=== PATIENT | male | born 1940 | race Caucasian/White ===

== ENCOUNTER 2021-09-30 03:46 | Inpatient (IN) | payer MEDICARE, SELFPAY ==
[2021-09-30] VITALS (8 sets, daily range): BP systolic 101–126; BP diastolic 64–82; PULSE 62–88; RESP 16–18; TEMP 36.7–37; O2SAT 94–100; BMI 25.7
--- NOTE | ~2021-09-30 | CT_ITS ---
EXAMINATION: CT abdomen pelvis wo con DATE: 09/30/2021 04:21 INDICATION: Abdominal pain. Bloating. Vomiting. TECHNIQUE: Computed tomography (CT) of the abdomen and pelvis was performed without intravenous contr ast. Automated exposure control and iterative reconstruction technique were employed. The dose-length product was 1040.05 mGy-cm. COMPARISON: CT abdomen and pelvis 06/17/2016 FINDINGS: The visualized portions of the lung bases demonstrate chronic interstitial lung disease and mild atelectasis. No pleural effusion. The heart size is normal. There are coronary artery calcifica tions. No pericardial effusion. There is a small sliding hiatal hernia. The liver and spleen are norm al. There are gallstones in the gallbladder, which is normal in size. The pancreas, adrenal glands, a nd left kidney are normal. There is 11 mm cyst in right kidney. There is no urolithiasis. There is a 5.0 cm fusiform aneurysm of infrarenal aorta. There are changes of aortobifem bypass grafting. There are moderate-sized bilateral hydroceles. There is diverticulosis of the colon without evidence of div erticulitis. There is liquid stool in the colon suggestive of diarrhea. The appendix is not visualize d. The ascending colon is distended. There are dilated loops of fluid-filled small bowel. There are n o pathologically enlarged lymph nodes. There is no free intraperitoneal fluid. There is an umbilical hernia containing fat. There is moderate lumbar spondylosis. IMPRESSION: 1. Dilated small bowel and proximal colon, consistent with adynamic ileus. 2. 5.0 cm fusiform aneurysm of infrarenal aorta, increased from 4.5 cm on 06/17/16. Aortobifem bypass g raft present. Surgical consultation is recommended. Reviewed, dictated and finalized at location A. IMPRESSION: 1. Dilated small bowel and proximal colon, consistent with adynamic ileus. 2. 5.0 cm fusiform aneurysm of infrarenal aorta, increased from 4.5 cm on 7. Aortobifem bypass graft present. Surgical consultation is recommended.
--- NOTE | 2021-09-30 03:54 | ECG_ITS ---
Measurements Intervals [place] Rate: 87 P: 43 VA: 136 QRS: -26 QRSD: 105 T: 61 QT: 372 QTc: 449 Interpretive Statements SINUS RHYTHM NONSPECIFIC ST ABNORMALITY INFERIOR MYOCARDIAL INFARCTION , OF INDETERMINATE AGE ABNORMAL ECG NO PREVIOUS ECG AVAILABLE FOR COMPARISON Electronically Signed On 09-30-2021 14:31:37 CDT by Tiago Garcia M.D.
--- NOTE | 2021-09-30 03:57 | ED.ABDPAIN ---
HPI - Abdominal Pain General Chief Complaint: Abdominal Pain Stated Complaint: abd pain History of Present Illness HPI narrative: 81-year-old male presents emergency room by ambulance secondary to abdominal pain. States it started about 4 hours ago. States it feels like he is diffusely bloated. He states I feel like I can have a bowel movement and throw up I do feel better . He denies any chest pain or shortness of breath. He has had abdominal aortic aneurysm in the past. States he had a small bowel movement earlier today. Going to his he had a pretty good dinner tonight. No pain into his legs. Related Data Allergies Allergy/AdvReac Type Severity Reaction Status Date / Time No Known Allergies Allergy Verified 09/30/21 03:56 Review of Systems Review of Systems: CONSTITUTIONAL: Denies fever, chills, or sweats. EYES: Denies visual changes, redness, or discharge. ENT: Denies rhinorrhea, congestion, sore throat, or otalgia. CARDIOVASCULAR: Denies chest pain, palpitations, or edema. RESPIRATORY: Denies cough or dyspnea. GASTROINTESTINAL: Abdominal bloating with associated diffuse abdominal pain in the mid and lower portion. GENITOURINARY: Denies dysuria or hematuria. SKIN: Denies rash or itching. MUSCULOSKELETAL: Denies back pain, joint pain, or myalgia. NEUROLOGIC: Denies headache, numbness, or weakness. PSYCHIATRIC: Denies anxiety or depression. [facility] Past Medical History Medical History (Updated 09/30/21 @ 03:58 by Nirav Gary DO) Abdominal aortic aneurysm Coronary artery disease Family History Family History (Updated 06/24/16 @ 15:53 by DOCTOR UNKNOWN) Other Family history of arthritis Family history of cardiovascular disease Family history of osteoarthritis Hypertension Social History Social History Smoking status: Never smoker Alcohol intake: current Exam Narrative: APPEARANCE: Well appearing, no pain or distress, well-nourished. Head normocephalic and atraumatic. EYES: PERRLA/EOMI, conjunctivae very clear. NOSE: Normal with no drainage EARS:TMS clear Dillon Gandhi, with good light reflex. THROAT: Pharynx clear, no exudate. NECK: Supple. No adenopathy, no masses. RESPIRATORY: Airway patent, respirations nonlabored. Clear to auscultation bilaterally, no rales, rhonchi, wheezing. CARDIOVASCULAR: Regular rate and rhythm without murmurs, rubs, or gallops. ABDOMINAL: Abdomen is distended with hyperactive bowel sounds. Some mild diffuse lower abdominal pain. No rebound or guarding. No masses. Musculoskeletal: Moves all extremities. Strength/ROM intact, No edema, No calf tenderness. Good distal pulses. NEURO: Alert. Cranial nerves II through XII intact. Normal gait. Good coordination. Nonfocal examination. SKIN:: Warm, dry. Normal Color PSYCHIATRIC: Normal affect/mood, normal interaction Course Vital Signs Vital signs: Vital Signs Temperature 98.0 F 09/30/21 03:42 Pulse Rate 87 09/30/21 03:42 Respiratory Rate 18 09/30/21 03:42 Blood Pressure 126/73 09/30/21 03:42 Pulse Oximetry 96 09/30/21 03:42 Oxygen Delivery Room Air 09/30/21 03:42 Temperature 98.0 F 09/30/21 03:42 Pulse Rate 88 09/30/21 05:21 Respiratory Rate 18 09/30/21 05:21 Blood Pressure 126/82 09/30/21 05:21 Pulse Oximetry 100 09/30/21 05:21 Oxygen Delivery Room Air 09/30/21 03:42 MDM - Abdominal Pain MDM Narrative Medical decision making narrative: Patient came in with his abdomen markedly distended with a lots of tenderness associated with this. Patient's had a couple episodes of emesis while in the emergency department. CT scans consistent with small bowel obstruction. This was explained to the patient and the family is at bedside. Will be admitted to the hospital at this time. Prehospital EKG was being read out as possible STEMI. Repeat EKG performed here shows some abnormalities in the inferior leads but there is no ST segment elevation. Patient's clinical pres
--- NOTE | 2021-09-30 04:01 | PC.NURSE ---
Pt to CT via stretcher at this time.
--- NOTE | 2021-09-30 04:21 | PC.NURSE ---
Pt taken to restroom via wheelchair. Pt able to ambulate to chair with steady gait.
--- NOTE | 2021-09-30 04:59 | PC.NURSE ---
This RN attempted to start IV access x2, no success. EDP notified for route change of medication
[2021-09-30] MEDS: ONDANSETRON HCL ODT 4 MG TABLET PO (05:06)
--- NOTE | 2021-09-30 05:07 | PC.NURSE ---
Pt taken to restroom. Pt reports several episodes of diarrhea since at ED.
[2021-09-30 05:18] LABS: Basophils Absolute Auto 0.1 K/mm3 (0.0-0.1); Basophils Percent Auto 0.4 % (0.2-1.2); Eosinophils Percent Auto 0.2 % (0-4.4); Hematocrit 52.3 % (42.0-52.0); Hemoglobin 16.8 g/dL (14.0-18.0); Immature Granulocyte Absolute 0.09 K/mm3 (0.00-0.031); Immature Granulocyte Percent A 0.5 % (0-0.5); Lymphocytes Percent Auto 2.4 % (18.3-44.2); Mean Corpuscular HGB Conc 32.1 g/dl (32-36); Mean Corpuscular Hemoglobin 29.4 pg (26-34); Mean Corpuscular Volume 91.4 fl (80-100); Mean Platelet Volume 11.2 fl (7.4-10.4); Monocytes Percent Auto 5.7 % (2.6-8.5); Neutrophils Absolute Auto 15.3 K/mm3 (1.3-6.7); Neutrophils Percent Auto 90.8 % (45.5-73.1); Platelet Count Result 273 k/mm3 (150-375); Red Blood Count 5.72 M/mm3 (4.6-6.20); Red Cell Distribution Width 13.7 % (11.5-14.5); White Blood Count 16.9 K/mm3 (4.5-10.0)
--- NOTE | 2021-09-30 05:41 | PC.NURSE ---
IV attempt x 1 by this RN. Unsuccessful.
[2021-09-30 06:16] LABS: Alanine Aminotransferase 15 U/L (6-50); Albumin Level 4.6 g/dL (3.5-5.1); Alkaline Phosphatase 86 U/L (38-126); Anion Gap 8 mmol/L (8-16); Aspartate Amino Transferase 21 U/L (17-59); Bilirubin,Total 0.6 mg/dL (0.2-1.3); Blood Urea Nitrogen 25 mg/dL (9-20); Calcium 8.4 mg/dL (8.4-10.2); Carbon Dioxide 24 mmol/L (22-30); Chloride 105 mmol/L (98-107); Estimated CRCL calculation 38 ml/min; Estimated Glomerular Filt Rate 49; Glucose 139 mg/dL (65-110); Potassium 4.5 mmol/L (3.4-5.0); Sodium 137 mmol/L (137-145)
[2021-09-30 06:21] LABS: Troponin I < 0.012 ng/mL (0.000-0.034)
--- NOTE | 2021-09-30 06:27 | ADMGEN ---
This patient, Bello Mccain, was admitted to 3 [facility] Surg Room 321-01. Patient/family oriented to hospital policies and general routines including ID bracelet, bed and alarms, visiting hours, pain management, procedures, bathroom and other care routines, personal items, smoking policy, room service/diet, and visiting hours. Information on how to activate the Rapid Response Team has been discussed. Patient/Family are encouraged to report perceived risks to care and to ask questions if they do not understand what they are told or what they should do.
--- NOTE | 2021-09-30 11:39 | PM.IMHP ---
H&P: HPI History of Present Illness Date/Time: 09/30/21 11:39 Chief Complaint: Abdominal pain nausea 81-year-old male presents emergency room by ambulance secondary to abdominal pain.? States it started about 4 hours ago.? States it feels like he is diffusely bloated.? He states I feel like I can have a bowel movement and throw up I do feel better .? He denies any chest pain or shortness of breath.? He has had abdominal aortic aneurysm in the past.? States he had a small bowel movement earlier today.? Going to his he had a pretty good dinner tonight.? No pain into his legs. I did not see the patient with following morning after he was admitted. According the patient had about 8-10 loose stools Overnite. He is feeling 100% better no abdominal pain currently. Reports she wants to drink something and probably eats something as well. Surgical Consul has not been entered yet. Review of Systems Review of Systems: 10 point ROS negative except as stated in HPI / Subjective PMFSH Past Medical History Medical History (Updated 09/30/21 @ 11:41 by Jesus Lin MD) Abdominal aortic aneurysm Coronary artery disease Family History Family History (Updated 06/24/16 @ 15:53 by DOCTOR UNKNOWN) Other Family history of arthritis Family history of cardiovascular disease Family history of osteoarthritis Hypertension Social History Social History Smoking status: Never smoker Alcohol intake: current Substance use: never Spiritual care concerns: No Meds Home Medications and Allergies Home Medications Medication Instructions Recorded Confirmed Type aspirin 81 mg tablet 81 mg PO DAILY 09/30/21 09/30/21 History atenolol 25 mg tablet 25 tablet PO DAILY 09/30/21 09/30/21 History lisinopril 20 mg tablet 20 tablet PO DAILY 09/30/21 09/30/21 History Allergies Allergy/AdvReac Type Severity Reaction Status Date / Time No Known Allergies Allergy Verified 09/30/21 06:59 Vital Signs Vital Signs - 24 hr 09/30/21 03:42 09/30/21 05:21 09/30/21 06:01 Temperature 98.0 F Pulse Rate 87 88 83 Respiratory Rate 18 18 17 Blood Pressure 126/73 126/82 Pulse Oximetry 96 100 95 Oxygen Delivery Room Air 09/30/21 06:46 Temperature 98.6 F Pulse Rate 83 Respiratory Rate 18 Blood Pressure 105/64 Pulse Oximetry 94 Oxygen Delivery Exam Narrative: General: alert and oriented Psych: appropriate mood nad affect Eyes: PERRLA Neck: Trachea midline, no new lesions Skin: no changes Lungs: CTA Cardiac: Normal S1,S2, no MGR ABD: soft, nd, nt, nbs Ext: no new lesions, no cce Vasc: Pulses intact H&P: Results Labs Labs: Short CBC 09/30/21 Range/Units 05:00 WBC 16.9 H (4.5-10.0) K/mm3 Hgb 16.8 (14.0-18.0) g/dL Hct 52.3 H (42.0-52.0) % Plt Count 273 (150-375) k/mm3 BMP 09/30/21 05:49 Sodium 137 Potassium 4.5 Chloride 105 Carbon Dioxide 24 BUN 25 H Creatinine 1.40 H Glucose 139 H Calcium 8.4 Cardiac Enzymes 09/30/21 Range/Units 05:49 Troponin I < 0.012 (0.000-0.034) ng/mL Liver Function 09/30/21 Range/Units 05:49 Total Bilirubin 0.6 (0.2-1.3) mg/dL AST 21 (17-59) U/L ALT 15 (6-50) U/L Alkaline Phosphatase 86 (38-126) U/L Albumin 4.6 (3.5-5.1) g/dL Assessment and Plan Assessment and plan (1) Ileus: Code(s): K56.7 - Ileus, unspecified Status: Acute Assessment and Plan: Likely resolved. Patient had episode of emesis last night Choi is a being admitted to the ER. He also had several bowel movements Overnite. Noted loose stool. No abdominal cramping no abdominal pain. He wants to eat. IV fluids will be continued until surgery can see and may advance diet if okay with surgery (2) Hypertension: Code(s): I10 - Essential (primary) hypertension Status: Acute Assessment and Plan: Continue home meds (3) Abdominal aortic aneurysm: Code(s): I71.4 - Abdo
[2021-09-30] MEDS: LACTATED RINGERS 1,000 ML 75 ML IV CONT (12:02)
[2021-09-30 12:27] LABS: Appearance Urine Slightly Cloudy (Clear); Bilirubin Urine Negative (Negative); Blood Urine Trace-lysed (Negative); Color Urine Yellow (Yellow); Glucose Urine UA Negative (Negative); Ketones Urine Negative (Negative); Leukocyte Esterase Ur Negative LEU/UL (Negative); Nitrate Urine Negative (Negative); Protein Urine Trace mg/dL (Negative); Urobilinogen Urine 0.2 mg/dL (<2.0); pH Urine 5.5 (5.0-9.0)
[2021-09-30 12:35] LABS: Mucus Urine Rare /lpf; Squamous Epithelial Cell Urine Rare /hpf (Few); WBC Urine 0-3 /hpf
[2021-09-30 12:44] LABS: Add Urine Microscopic? YES
--- NOTE | 2021-09-30 15:45 | PM.CNGS ---
Assessment and Plan Assessment and plan (1) Abnormal CT of the abdomen: Code(s): R93.5 - Abnormal findings on diagnostic imaging of other abdominal regions, including retroperitoneum Status: Acute Assessment and Plan: CT scan reviewed and discussed with the patient in detail. The initial teleradiology report suggested possible early or partial small bowel obstruction, no definitive transition point. CT read by the Radiologist this morning suggests dilation of the small bowel and proximal colon, suggesting an ileus. The patient's symptoms had a sudden onset after quickly eating a large meal and have since resolved after having multiple bowel movements. After evaluating the patient, it seems that this is more likely related to a food bolus. He has now had multiple bowel movements overnight and one this morning. He has no signs of an obstruction. His abdominal exam is benign. There is no indication for surgical intervention at this time. Will start clear liquids and may advance his diet as tolerated. Thank you for allowing us to see the patient in consultation. (2) Hypertension: Code(s): I10 - Essential (primary) hypertension Status: Chronic (3) Abdominal aortic aneurysm: Code(s): I71.4 - Abdominal aortic aneurysm, without rupture Status: Chronic Assessment and Plan: 5.0 cm infrarenal aortic aneurysm noted on CT increased in size from 2017. He has called his vascular surgeon, Dr. Sherwood, and has a follow-up scheduled in the next few weeks. Plan I have discussed the patient's case and plan of care with Dr. Walker. History of Present Illness Consult details Consult date: 09/30/21 Reason for consult: other (Ileus) Requesting physician: Jesus Lin MD Narrative: This is an 81-year-old male with a history of abdominal aortic aneurysm and hypertension who presented to the ER with complaints of abdominal pain. He reports eating a large dinner yesterday evening including 4 servings of instant mashed potatoes, a can of creamy corn, and an 8 ounce steak. He reports eating this very quickly and feeling extremely full. About 1 hour after eating, he continued to feel full, but also began having generalized cramping abdominal pain. He denies ever having this pain before in the past. He also reports significant bloating, but no nausea or vomiting at home. He tried to go to bed around midnight, but was unable to sleep due to the abdominal pain. He tried cold and warm compresses with no relief. He then woke his significant other and they called EMS. In the ER, his CT scan was read by the teleradiologist and suggested a partial versus early small bowel obstruction with no transition point. The patient reports that en route to the CT scan, his abdominal pain completely resolved. While in Radiology, he had 3 episodes of emesis and estimated 7 bowel movements. The patient was admitted to the Hospitalist and made NPO. CT read by the Radiologist this morning suggests an adynamic ileus. Through the night, he reports having another 2-3 bowel movements and one this morning. He has not had abdominal pain since being in the ER. He denies any nausea or vomiting since being admitted to the floor. Our service was consulted for an ileus. The patient is now seen. He is eager to eat and states he feels back to his baseline. No complaints at the time of my exam. He denies every having a bowel obstruction in the past. He had a colonoscopy about 1-2 years ago, which was reportedly normal. Review of Systems Review of Systems: All systems reviewed & are unremarkable except as noted in HPI and below Constitutional: Constitutional: Reports as per HPI, Denies chills, Denies fatigue and Denies fever(s) Eyes: Eyes: Reports no additional eye complaints ENT: Reports system reviewed and no additional complaints, except as documented and Reports Normal hearing present Cardiovascular: Cardiovascular: Reports no additional cardiovascular
[2021-10-01] MEDS: LACTATED RINGERS 1,000 ML 75 ML IV CONT (01:31)
[2021-10-01 05:45] LABS: Hematocrit 39.4 % (42.0-52.0); Hemoglobin 12.5 g/dL (14.0-18.0); Mean Corpuscular HGB Conc 31.7 g/dl (32-36); Mean Corpuscular Hemoglobin 28.9 pg (26-34); Mean Corpuscular Volume 91.2 fl (80-100); Mean Platelet Volume 10.6 fl (7.4-10.4); Platelet Count Result 146 k/mm3 (150-375); Red Blood Count 4.32 M/mm3 (4.6-6.20); Red Cell Distribution Width 13.7 % (11.5-14.5); White Blood Count 5.7 K/mm3 (4.5-10.0)
[2021-10-01 06:00] VITALS: BP 140/71; PULSE 63; RESP 16; TEMP 36.7; O2SAT 93
[2021-10-01 06:20] LABS: Anion Gap 4 mmol/L (8-16); Blood Urea Nitrogen 23 mg/dL (9-20); Calcium 6.9 mg/dL (8.4-10.2); Carbon Dioxide 23 mmol/L (22-30); Chloride 107 mmol/L (98-107); Estimated CRCL calculation 44 ml/min; Estimated Glomerular Filt Rate 58; Glucose 92 mg/dL (65-110); Potassium 4.1 mmol/L (3.4-5.0); Sodium 134 mmol/L (137-145)
[2021-10-01 08:00] VITALS: O2SAT 95
[2021-10-01 09:01] VITALS: PULSE 67
[2021-10-01] MEDS: lisinopriL 20 MG TABLET PO (09:01)
[2021-10-01] MEDS: atenoloL 25 MG TABLET PO (09:01)
--- NOTE | 2021-10-01 11:12 | PM.DS ---
DS: Admitting Diagnosis Discharge Date October 01, 2021 Admitting Diagnosis Possible small-bowel obstruction. Nausea vomiting DS: Discharge Diagnosis Discharge Diagnosis (1) Ileus: Code(s): K56.7 - Ileus, unspecified Status: Acute Assessment and Plan: Likely resolved. Patient has had numerous bowel movements. Passing gas this morning as well. Appreciate surgical Consul. (2) Hypertension: Code(s): I10 - Essential (primary) hypertension Status: Chronic Assessment and Plan: Continue home meds (3) Abdominal aortic aneurysm: Code(s): I71.4 - Abdominal aortic aneurysm, without rupture Status: Chronic Assessment and Plan: Slightly increased from prior study. Patient reports he follows with his vascular surgeon regularly. He has an appointment next week or 2. I do not think there is anything urgent needed to be done. DS: Summary Hospital Course Hospital Course: See discharge planning diagnoses Time Spent with Patient Time attestation: Total time spent providing and/or coordinating discharge services: Exam Narrative: General: alert and oriented Psych: appropriate mood nad affect Eyes: PERRLA Neck: Trachea midline, no new lesions Skin: no changes Lungs: CTA Cardiac: Normal S1,S2, no MGR ABD: soft, nd, nt, nbs Ext: no new lesions, no cce Vasc: Pulses intact DS: Data Data Completed and Pending Labs on day of discharge: Labs from last 24 hours 10/01/21 10/01/21 09/30/21 05:34 05:34 03:53 WBC 5.7 RBC 4.32 L Hgb 12.5 L D Hct 39.4 L MCV 91.2 MCH 28.9 MCHC 31.7 L RDW 13.7 Plt Count 146 L MPV 10.6 H Sodium 134 L Potassium 4.1 Chloride 107 Carbon Dioxide 23 Anion Gap 4 L BUN 23 H Creatinine 1.20 Estim Creat Clear Calc 44 Estimated GFR 58 L Glucose 92 Calcium 6.9 L Urine Color Yellow Urine Appearance Slightly cloudy Urine pH 5.5 Ur Specific [place] 1.020 Urine Protein Trace Urine Glucose (UA) Negative Urine Ketones Negative Ur Blood (Man) Trace-lysed Urine Nitrate Negative Urine Bilirubin Negative Urine Urobilinogen 0.2 Leukocyte Esterase Rfl Negative Urine RBC 3-5 H Urine WBC 0-3 Ur Squamous Epith Cells Rare Urine Mucus Rare Discharge Plan Discharge Attending physician on discharge: Jesus Lin Consulting providers: Alec Walker Discharging Clinician: Jesus Lin Patient Disposition: Home, Self-Care Activity: no preference Diet: as tolerated Patient Instructions: Antibiotic Form, Pain Management in Older Adults (DC), Bowel Obstruction (DC) Stand Alone Forms: General Discharge Information Follow-up/Referrals: Alec Walker, [Physician] - Discharge Medications: Continued lisinopril 20 mg tablet 20 tablet PO DAILY atenolol 25 mg tablet 25 tablet PO DAILY aspirin 81 mg Tablet 81 mg PO DAILY Date of admission: 09/30/21 05:30 Primary Care Provider: SebastiánRoseline Admitting Provider: Reji Anderosn V. Attending physician on admission: Reji Anderson V. Condition: Serious
== END 2021-10-01 14:45 | disposition home or self-care (01) | DRG 390 ==
LOC: ANHED 04:10 → ANH3MEDSUR 06:29
PROVIDERS: Admitting Provider Internal Medicine; Emergency Provider Emergency Medicine; PCP Internal Medicine; Visit Provider Chiropractor
DX: K56.0 Paralytic ileus (principal); I10 Essential (primary) hypertension; I71.4 Abdominal aortic aneurysm, without rupture; I25.10 Atherosclerotic heart disease of native coronary artery without angina pectoris; Z90.49 Acquired absence of other specified parts of digestive tract; Z87.891 Personal history of nicotine dependence
CPT/HCPCS: 36415; 74176; 80048; 80053; 81001; 84484; 85025; 85027; 93005; 99285; A9270; J7120

== ENCOUNTER 2023-05-13 12:33 | Outpatient (RCR) | payer MEDICARE, SELFPAY ==
--- NOTE | 2023-05-13 16:40 | STOPEVDC ---
Assessment and note entered by Angeline Weinberg, INDUSTRIAL PRODUCTION MANAGER Thank you for referring Bello Mccain to [facility].? An evaluation has been completed. No further treatment is needed. 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 His had him see a neurologist concerning his memory and the neurologist recommended a Speech Therapy evaluation. Patient obtained books to address cognition and memory that the speech pathologist at [facility] recommended however patient does not desire to work them currently. 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 reports concern with patient's memory and he reports he can tell it's not quite the same and agreed. Patient does admit to increased fatigue since CVA but reported he had a bout with COVID after discharge and states that seems to affect him more than the stroke. also indicated that patient has difficulty with reading and retaining written information. Patient and report patient has a history of attention deficit disorder/hyperactivity with reduced attention to current speaker, always thinking of the next thing he was going to do so they report some of his difficulty with the lengthy and complex information may have been pre- morbid. The patient was presented with several subtests from the [employer] Assessment. He exhibited mild difficulty recalling each piece of information from lengthy and complex word and number lists and sentences, dropping at least one piece of information from each stimulus item. He exhibited no other difficulty recalling and completing other evaluation tasks. The patient performed as follows: I. Immediate Memory: (lost one point from each of the four lengthiest and most complex
== END 2023-05-14 15:00 | disposition home or self-care (01) ==
LOC: ANHST 12:33
PROVIDERS: Visit Provider Physician Assistant
DX: I63.9 Cerebral infarction, unspecified (principal); F80.1 Expressive language disorder
CPT/HCPCS: 92522; 96125

== ENCOUNTER 2024-11-15 14:00 | Outpatient (RCR) | payer MEDICARE, SELFPAY ==
--- NOTE | 2024-09-16 14:37 | OPREHPOC ---
Outpatient Therapy Plan of Care This is a Multidisciplinary Plan of Care that may contain components documented by all disciplines (PT, OT, and ST.) PT Problem 1 PT Problem #1 Knowledge Deficit PT Goal 1 Goal / Goal Update *independent with HEP Target Visit 10 PT Problem 2 PT Problem #2 Impaired Strength PT Goal 1 Goal / Goal Update 1*increase R and L LE strength to gross 4+/5 to improve walking and balance skills 2* single leg standing R x 6 seconds 3* single leg standing L x 6 seconds Target Visit 10 PT Problem 3 PT Problem #3 Impaired Functional Mobility PT Goal 1 Goal / Goal Update 1* 10 reps sit/stand with use of 1 UE, with good control of motion-- no plopping into chair and initial standing with good balance 2* Snyder balance score of 50/56, to improve mobility 3* 2 minute walking test distance of 520' Target Visit 10
--- NOTE | 2024-09-16 14:37 | PTOPEVAL1 ---
Assessment and note entered by Mesha Oseguera PT Evaluation Information Assessment Status Evaluation ICD-10 Condition Codes (PT) Difficulty Walking R26.2,Abnormalities of gait and mobility R26.9,Weakness R53.1 Onset May 2024 Subjective Information to hospital and had mini stroke that effected his eyes; have not had any falls; had in home PT after hospitalization; do some leg exercises at home; have balance and weakness of legs; activity: home with significant other Cecily; have stairs at home with 1 hand railing; Reported Pain Level Pain Score 0: Self Report Assessment PT Clinical Summary Art has the diagnosis of decreased gait and balance. He has not had any falls. Recent decrease in mobility s/p hospitalization and mini stroke with visual changes, effecting his reading only. 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 Lives at home with his significant other Cecily, who was present during eval and very supportive to pt. Medical history includes: CVA x2, L TKR with decreased ROM 0-95'; a fib, CHF, [place]. With the evaluation: 2 minute walking test distance of 460'; 5 reps sit/stand time with use of 1 UE 16 seconds and decreased control with sitting/plop into chair; Snyder balance/gait score of 41/56. Decreased strength of both LE's. Skilled PT services are indicated for therapeutic exercises and activities to increase LE strength, gait and balance skills, to improve safety with mobility. Education for HEP. Plan of Care Interventions Patient/Caregiver Education,Therapeutic Activities ,Therapeutic Exercise PT Services Indicated Yes Treatment Frequency and 1-2x/wk for 10 visits Duration These treatments will address the objective and functional deficits as defined above. The patient will be advanced safely and appropriately in order for the patient to progress towards his/her prior level of function. Additional exercises will be introduced and as well as a comprehensive home exercise program upon discharge, if needed, ?to ensure carryover of functional gains achieved in the clinic. This treatment plan has been reviewed and agreement upon by the patient.
--- NOTE | 2024-10-11 10:13 | PCPTNOTE ---
family member call to cancel pt appts for this week (10/11 and 10/13), reports pt fell and has been in the ED
--- NOTE | 2024-10-18 13:36 | PCPTNOTE ---
spoke with Cecily, pt significant other, called to cancel today's appt as the pt fell again. She will be trying to take him to the MD but wants to keep his last PT appt on the schedule. Educated her on his demeanor changes and presentation his last few therapy appts. She will address this with his MD as well.
--- NOTE | 2024-10-24 14:41 | OTOPEVAL1 ---
Assessment and note entered by Demarcus Reece, HUMZA/Cathi, CHT Evaluation Information Assessment Status Evaluation Diagnosis R26.89 Balance problem Subjective Information Patient presents today with his , Cecily. He reports he has been coming here for PT and reports he feels weak, having falls. He reports his biggest deficit is his balance. He reports he is currently independent with bathing and dressing, but he's slow. They have proper DME in the shower. Reported Pain Level Pain Score 0: Self Report Assessment OT Clinical Summary Patient referred to OT with dx of balance problems . He presents with reduced safety, independence, and functional upper body strength for ADLs. Skilled OT indicated to maximize functional safety , independence, and strength. Plan of Care Interventions Therapeutic Exercise,Therapeutic Activities OT Services Indicated Yes Treatment Frequency and 2x/week for 8 visits Duration These treatments will address the objective and functional deficits as defined above. The patient will be advanced safely and appropriately in order for the patient to progress towards his/her prior level of function. Additional exercises will be introduced and as well as a comprehensive home exercise program upon discharge, if needed, ?to ensure carryover of functional gains achieved in the clinic. This treatment plan has been reviewed and agreement upon by the patient.
--- NOTE | 2024-10-24 14:42 | OPREHPOC ---
Outpatient Therapy Plan of Care This is a Multidisciplinary Plan of Care that may contain components documented by all disciplines (PT, OT, and ST.) PT Problem 1 PT Problem #1 Knowledge Deficit PT Goal 1 Goal / Goal Update *independent with HEP Target Visit 10 PT Problem 2 PT Problem #2 Impaired Strength PT Goal 1 Goal / Goal Update 1*increase R and L LE strength to gross 4+/5 to improve walking and balance skills 2* single leg standing R x 6 seconds 3* single leg standing L x 6 seconds Target Visit 10 PT Problem 3 PT Problem #3 Impaired Functional Mobility PT Goal 1 Goal / Goal Update 1* 10 reps sit/stand with use of 1 UE, with good control of motion-- no plopping into chair and initial standing with good balance 2* Snyder balance score of 50/56, to improve mobility 3* 2 minute walking test distance of 520' Target Visit 10 OT Problem 1 OT Problem #1 Knowledge Deficit OT Goal 1 Goal / Goal Update Patient to be independent with instructed materials. Target Visit 8 OT Problem 2 OT Problem #2 Impaired Strength OT Goal 1 Goal / Goal Update 1. Patient to improve functional strength as measured by being able to progress to 4 lb. with HEP. 2. 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 on the right hand and 58 lbs. on the left hand. Target Visit 8
--- NOTE | 2024-10-27 15:30 | OPREHPOC ---
Outpatient Therapy Plan of Care This is a Multidisciplinary Plan of Care that may contain components documented by all disciplines (PT, OT, and ST.) PT Problem 1 PT Problem #1 Knowledge Deficit PT Goal 1 Goal / Goal Update *independent with HEP (10/27/24 questionable compliance) Target Visit 10 Progress Partially Met PT Problem 2 PT Problem #2 Impaired Strength PT Goal 1 Goal / Goal Update 1*increase R and L LE strength to gross 4+/5 to improve walking and balance skills (10/27/24 no change) 2* single leg standing R x 6 seconds (10/27/24 unable to lift) 3* single leg standing L x 6 seconds (10/27/24 unable to lift) Target Visit 10 Progress Not Met PT Problem 3 PT Problem #3 Impaired Functional Mobility PT Goal 1 Goal / Goal Update 1* 10 reps sit/stand with use of 1 UE, with good control of motion-- no plopping into chair and initial standing with good balance (10/27/24 42sec) 2* Snyder balance score of 50/56, to improve mobility (10/27/24 28/56) 3* 2 minute walking test distance of 520' (10/27/24 regressed to 175 feet with SC) Target Visit 10 Progress Not Met OT Problem 1 OT Problem #1 Knowledge Deficit OT Goal 1 Goal / Goal Update Patient to be independent with instructed materials. Target Visit 8 OT Problem 2 OT Problem #2 Impaired Strength OT Goal 1 Goal / Goal Update 1. Patient to improve functional strength as measured by being able to progress to 4 lb. with HEP. 2. 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 on the right hand and 58 lbs. on the left hand. Target Visit 8
--- NOTE | 2024-10-27 15:30 | PTOPPROG ---
Assessment and note entered by Cassidy Reyes, PT Evaluation Information Assessment Status Evaluation ICD-10 Condition Codes (PT) Difficulty Walking R26.2,Abnormalities of gait and mobility R26.9,Weakness R53.1 Onset May 2024 Subjective Information Pt had 2 falls in the last 2 weeks and has not been seen in PT for 21 days. He fell the first time and hurt his back and was admitted to the ER. The second fall he tripped over a parking curb that he was unable to see and fell forward and hit his head. he has not gone to the doctor since his second fall but has a neurology appointment later this month. Pt has been complaining that he does not feel like he is getting anywhere with his strength or balance doing therapy. He wants to continue to try and get better. Assessment PT Clinical Summary Patient's condition has made little to no advancements in symptoms, mobility, strength, and functional tolerance to ADLs. Pt has regressed from his previous scores during objective measures since his most recent falls. The pt is highly motivated and he demonstrates the need for continued therapy to improve his functional ability. Patient would benefit from continued skilled PT services to address the above listed impairments and facilitate a return to their PLOF. The pt has displayed various changes in behavior during his sessions in PT ranging from irritability, frustration, giddiness, and grieving that were inconsistent with conversation. The patients significant other has also mentioned mood changes, confusion, which worsen the longed the pt is awake. Plan of Care Interventions Gait Training,Manual Therapy,Neuro Re-education, Patient/Caregiver Education,Therapeutic Activities ,Therapeutic Exercise PT Services Indicated Yes Treatment Frequency and 2x/wk for 8 visits Duration These treatments will address the objective and functional deficits as defined above. The patient will be advanced safely and appropriately in order for the patient to progress towards his/her prior level of function. Additional exercises will be introduced and as well as a comprehensive home exercise program upon discharge, if needed, ?to ensure carryover of functional gains achieved in the clinic. This treatment plan has been reviewed and agreement upon by the patient.
--- NOTE | 2024-10-28 11:39 | BUOTOPEVAL ---
Assessment and note entered by Demarcus Reece, OTR/Cathi, CHT OT Evaluation Information Diagnosis R26.89 Balance problem, R29.898 Lack of strength in UEs Subjective Information Patient presents today with his , Cecily. He reports he has been coming here for PT and reports he feels weak, having falls. He reports his biggest deficit is his balance. He reports he is currently independent with bathing and dressing, but he's slow. They have proper DME in the shower. Assessment OT Clinical Summary Patient referred to OT with dx of balance problems . He presents with reduced safety, independence, and functional upper body strength for ADLs. Skilled OT indicated to maximize functional safety , independence, and strength. Plan of Care Interventions Therapeutic Exercise,Therapeutic Activities OT Services Indicated Yes Treatment Frequency and 2x/week for 8 visits Duration These treatments will address the objective and functional deficits as defined above. The patient will be advanced safely and appropriately in order for the patient to progress towards his/her prior level of function. Additional exercises will be introduced and as well as a comprehensive home exercise program upon discharge, if needed, ?to ensure carryover of functional gains achieved in the clinic. This treatment plan has been reviewed and agreement upon by the patient.
--- NOTE | 2024-11-15 14:44 | PTOPDC ---
Assessment and note entered by Cassidy Reyes, PT Evaluation Information Assessment Status Discharge - Pt Not Present ICD-10 Condition Codes (PT) Difficulty Walking R26.2,Abnormalities of gait and mobility R26.9,Weakness R53.1 Onset May 2024 Subjective Information As pt was exiting PT appt this date, SO and pt reported he is starting [facility] program on . Reported Pain Level Pain Score 0: Self Report Pain Score 0: Self Report Assessment PT Clinical Summary Pt will be discharged from PT this date and can return with new order following care at [facility]. Plan of Care PT Services Indicated Yes
--- NOTE | 2024-11-15 14:51 | OTOPDC ---
Assessment and note entered by Demarcus Reece, OTNatty/Cathi, BRYAN OT D/C 11/15/24 OT Clinical Summary Patient is being discharged from OT services at this time due to going to rehab at the [facility], beginning later this week. He attended the initial evaluation and 2 follow up treatment sessions working on gross UE strength and improved functional safety. No formal reassessment completed this date. D/C OT.
== END 2024-11-16 11:43 | disposition home or self-care (01) ==
LOC: ANHGOSHPT 14:00
PROVIDERS: PCP Internal Medicine; Visit Provider Internal Medicine
DX: R26.89 Other abnormalities of gait and mobility (principal)
CPT/HCPCS: 97110; 97112; 97161; 97165; 97530